=== PATIENT | female | born 2000 | race Caucasian/White ===

== ENCOUNTER 2020-02-01 22:07 | Emergency (ER) | payer MEDICAID ==
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
[2020-02-01 23:10] VITALS: BP 100/60; PULSE 80; O2SAT 97
== END 2020-02-01 23:09 | disposition home or self-care (01) ==
LOC: ED 22:07
DX: F41.9 Anxiety disorder, unspecified (principal); F10.129 Alcohol abuse with intoxication, unspecified
CPT/HCPCS: 99283

== ENCOUNTER 2020-04-07 08:55 | Emergency (ER) | payer MEDICAID ==
--- NOTE | 2020-04-07 08:59 | ERPHSYRPT ---
- History of Present Illness Time Seen by Provider: 04/07/20 08:58 Source: patient Exam Limitations: no limitations Physician History: This is a 19-year-old white female whose last menstrual period was on 03/03/2020 and presents with concerned that she may be . Patient states that she took 2 test showed positive . She was having a lot of back pain without history of trauma or injury. Patient denies anterior abdominal pain. She denies vaginal bleeding. She has had no fevers. She has had no nausea vomiting or diarrhea. Patient has history of anxiety and panic attacks. Patient states she is Rh-. Timing/Duration: day(s) (3) Method of Injury: other (No injury) Quality: aching Back Pain Location: lumbar spine (Bilateral flanks) Severity of Pain-Max: mild Severity of Pain-Current: mild Associated Symptoms: lower back pain, No urinary incontinence, No nausea, No vomiting, No problems urinating Previous symptoms: no prior history Allergies/Adverse Reactions: trazodone Allergy (Severe, Verified 04/07/20 09:31) Difficulty Breathing aripiprazole [From Abilify] Adverse Reaction (Intermediate, Verified 04/07/20 09:31) muscle spasm ibuprofen Adverse Reaction (Mild, Verified 04/07/20 09:31) dizzy Hx Tetanus, Diphtheria Vaccination/Date Given: Yes Hx Influenza Vaccination/Date Given: Yes Travel Risk - International Travel Have you traveled outside of the country in past 3 weeks: No - Coronavirus Screening Are you exhibiting any of the following symptoms?: No Close contact with a COVID-19 positive Pt in past 14-21 Days: No - Review of Systems Constitutional: No Symptoms Eyes: No Symptoms Ears, Nose, & Throat: No Symptoms Respiratory: No Symptoms Cardiac: No Symptoms Abdominal/Gastrointestinal: No Symptoms Genitourinary Symptoms: Flank Pain (Bilateral), (Possible) Musculoskeletal: Back Pain Skin: No Symptoms Neurological: No Symptoms Psychological: No Symptoms Endocrine: No Symptoms Hematologic/Lymphatic: No Symptoms Immunological/Allergic: No Symptoms All Other Systems: Reviewed and Negative - Past Medical History Pertinent Past Medical History: Yes Neurological History: Other (Anxiety, panic attacks, and depression) Cardiac History: No Pertinent History Respiratory History: No Pertinent History Endocrine Medical History: No Pertinent History Musculoskeletal History: No Pertinent History GI Medical History: No Pertinent History History: No Pertinent History Psycho-Social History: Anxiety Female Reproductive Disorders: No Pertinent History - Past Surgical History Past Surgical History: No Neuro Surgical History: No Pertinent History Cardiac: No Pertinent History Respiratory: No Pertinent History Gastrointestinal: No Pertinent History Genitourinary: No Pertinent History Musculoskeletal: No Pertinent History Female Surgical History: No Pertinent History - Social History Smoking Status: Never smoker Exposure to second hand smoke: Yes Alcohol Use: Socially Drug Use: none Patient Lives Alone: No (Lives with boyfriend) - Nursing Vital Signs Nursing Vital Signs: Initial Vital Signs Temperature 99.0 F 04/07/20 09:33 Pulse Rate 102 H 04/07/20 09:33 Respiratory Rate 18 04/07/20 09:33 Blood Pressure 126/84 04/07/20 09:33 O2 Sat by Pulse Oximetry 97 04/07/20 09:33 Pain Scale Pain Intensity 4 - Physical Exam General Appearance: no apparent distress, alert, anxiety Eye Exam: PERRL/EOMI, eyes nml inspection Ears, Nose, Throat Exam: normal ENT inspection, moist mucous membranes Neck Exam: normal inspection, non-tender, supple, full range of motion Respiratory Exam: normal breath sounds, lungs clear, airway intact, No chest tenderness, No respiratory distress Gastrointestinal Exam: soft, normal bowel sounds, No tenderness Pelvic Exam: not done Rectal Exam: not done Back Exam: normal inspection, normal range of motion, CVA tenderness (Bilateralmild), No vertebral tenderness Extremity Exam: normal inspection, normal range of motion, pelvis stable Neurologic Exam: alert, oriented x 3, cooperative, greeting card writer II-XII nml as tested, normal mood/affect, nml cerebellar function, nml station & gait, sensation nml Skin Exam: normal color, warm, dry Lymphatic Exam: No adenopathy SpO2 Interpretation: normal O2 Delivery: Room Air Ordered Tests: Active Orders 24 hr Category Date Time Status CULTURE,URINE Stat Lab 04/07/20 10:18 Received HCG,QUALITATIVE URINE Stat Lab 04/07/20 10:18 Completed UA W/RFX UR CULTURE Stat Lab 04/07/20 10:18 Completed Medication Summary Generic Name Dose Route Start Last Admin Trade Name Freq PRN Reason Stop Dose Admin Ceftriaxone Sodium 1,000 mg 04/07/20 10:36 Rocephin 1000 Mg Inj IM 04/07/20 10:37 STAT ONE Lab/Rad Data: Laboratory Results 04/07/20 04/07/20 Range/Units 10:18 10:18 Urine Color DENNIS (YELLOW) Urine Appearance CLOUDY (CLEAR) Urine pH 5.0 (5-6) Ur Specific [place] 1.033 (1.005-1.025) Urine Protein 100 (Negative) Urine Ketones MODERATE (NEGATIVE) Urine Blood SMALL (0-5) Harshil/ul Urine Nitrite NEGATIVE (NEGATIVE) Urine Bilirubin SMALL (NEGATIVE) Urine Urobilinogen 2 (0-1) mg/dL Ur Leukocyte Esterase LARGE (NEGATIVE) Urine WBC (Auto) 51-100 (0-5) /HPF Urine RBC (Auto) 3-5 (0-2) /HPF U Epithel Cells (Auto) PACKED (FEW) /HPF Urine Bacteria (Auto) FEW (NEGATIVE) /HPF Urine Mucus (Auto) MANY (NEGATIVE) /HPF Urine Culture Reflexed YES (NO) Urine Glucose NEGATIVE (NEGATIVE) mg/dL Urine HCG, Qual POSITIVE (Negative) - Progress Progress: unchanged, re-examined Counseled pt/family regarding: lab results, diagnosis, need for follow-up - Departure Departure Disposition: Home Clinical Impression: UTI (urinary tract infection) in in first trimester Condition: Stable Critical Care Time: No Additional Instructions: Drink plenty of fluids. 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 Take your medication as prescribed. May use Tylenol for fever control and pain control. Prescriptions: Cephalexin Mh 500 mg [Keflex 500 mg] 500 mg PO TID #21 capsule
[2020-04-07 10:29] LABS: Appearance CLOUDY (CLEAR); Bacteria FEW /HPF (NEGATIVE); Bilirubin SMALL (NEGATIVE); Blood SMALL Ery/ul (0-5); Epithelial Cells PACKED /HPF (FEW); Glucose NEGATIVE (NEGATIVE); Ketones MODERATE (NEGATIVE); Leukocyte Esterase LARGE (NEGATIVE); Mucus MANY /HPF (NEGATIVE); Nitrite NEGATIVE (NEGATIVE); Protein,Urine Dip 100 (Negative); Specific Gravity 1.033 (1.005-1.025); Urobilinogen 2 mg/dL (0-1); WBC 51-100 /HPF (0-5)
[2020-04-07] MEDS ORDERED: Rocephin 1000 MG INJ IM ONE (10:36)
[2020-04-07] MEDS ORDERED: XYLOCAINE 1% HCL 20 ML MDV ONE (10:56)
[2020-04-07] MEDS ORDERED: Rocephin 1000 MG INJ ONE (10:56)
[2020-04-07 11:16] VITALS: BP 111/73; PULSE 112; O2SAT 95
== END 2020-04-07 11:17 | disposition home or self-care (01) ==
LOC: ED 08:55
DX: O23.41 Unspecified infection of urinary tract in pregnancy, first trimester (principal)
CPT/HCPCS: 81001; 84703; 87086; 96372; 99284; J0696

== ENCOUNTER 2020-06-30 20:09 | Emergency (ER) | payer MEDICAID ==
[2020-06-30 21:00] VITALS: O2SAT 100
[2020-06-30] MEDS ORDERED: NORCO 5/325 MG PO ONE (21:33)
[2020-06-30] MEDS ORDERED: NORCO 5/325 MG ONE (21:39)
--- NOTE | 2020-06-30 22:20 | ERPHSYRPT ---
- History of Present Illness Time Seen by Provider: 06/30/20 20:15 Source: patient Exam Limitations: no limitations Patient Subjective Stated Complaint: pt c/o headache since 10:00 am, nausea, vomitied 2-3 times today Triage Nursing Assessment: pt c/o migraine headache since 1000, nausea, vomited 2-3 times today. Pt states, "The tylenol has not helped at all today". Headache is throbbing and is across the forehead and to the back of head. Pt is currently 18 wks with twins. Physician History: Patient is a 19-year-old female G1, P0 currently 18 weeks with twins presents to our ED with a typical migraine. Patient states she gets migraine headaches monthly. Headache today described as a frontal pain that tends to radiate to the back of her head. Headache started today today at approximately 10 AM. Patient took Tylenol at 4 PM. There was minimal relief. 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 Patient states otherwise healthy. She voices no other complaints or concerns at this time. Timing/Duration: today Severity: moderate Modifying Factors: Improves With: nothing Associated Symptoms: nausea, vomiting, No abdominal pain, No shortness of breath, No heartburn, No diaphoresis, No cough, No chills, No chest pain, No fever, No loss of appetite, No malaise, No syncope, No seizure, No weakness Allergies/Adverse Reactions: trazodone Allergy (Severe, Verified 06/30/20 21:08) Difficulty Breathing aripiprazole [From Abilify] Adverse Reaction (Intermediate, Verified 06/30/20 21:08) muscle spasm ibuprofen Adverse Reaction (Mild, Verified 06/30/20 21:08) dizzy Home Medications: Biotin 10 mg PO DAILY 06/30/20 [History] Docusate Sodium 100 mg [Colace 100 MG] 100 mg PO DAILY PRN PRN 06/30/20 [History] Vit 10/Iron Fum/Folic [Vitafol-Ob Caplet] 1 tab PO DAILY 06/30/20 [History] Hx Tetanus, Diphtheria Vaccination/Date Given: Yes Hx Influenza Vaccination/Date Given: Yes Hx Pneumococcal Vaccination/Date Given: No Immunizations Up to Date: Yes Travel Risk - International Travel Have you traveled outside of the country in past 3 weeks: No - Coronavirus Screening Are you exhibiting any of the following symptoms?: No Close contact with a COVID-19 positive Pt in past 14-21 Days: No - Review of Systems Constitutional: No Symptoms, No Fever, No Chills Eyes: No Symptoms Ears, Nose, & Throat: No Symptoms Respiratory: No Symptoms, No Cough, No Dyspnea Cardiac: No Symptoms, No Chest Pain, No Edema, No Syncope Abdominal/Gastrointestinal: No Symptoms, No Abdominal Pain, No Nausea, No Vomiting, No Diarrhea Genitourinary Symptoms: No Symptoms, No Dysuria Musculoskeletal: No Symptoms, No Back Pain, No Neck Pain Skin: No Symptoms, No Rash Neurological: No Symptoms, No Dizziness, No Focal Weakness, No Lethargy, No Seizure, No Sensory Changes, No Speech Changes Psychological: No Symptoms Endocrine: No Symptoms Hematologic/Lymphatic: No Symptoms Immunological/Allergic: No Symptoms All Other Systems: Reviewed and Negative - Past Medical History Pertinent Past Medical History: Yes Neurological History: Migraines ENT History: No Pertinent History Cardiac History: No Pertinent History Respiratory History: Asthma Endocrine Medical History: No Pertinent History Musculoskeletal History: No Pertinent History GI Medical History: No Pertinent History History: No Pertinent History Psycho-Social History: Anxiety Female Reproductive Disorders: No Pertinent History - Past Surgical History Past Surgical History: No Neuro Surgical History: No Pertinent History Cardiac: No Pertinent History Respiratory: No Pertinent History Gastrointestinal: No Pertinent History Genitourinary: No Pertinent History Musculoskeletal: No Pertinent History Female Surgical History: No Pertinent History - Social History Smoking Status: Never smoker Exposure to second hand smoke: Yes Alcohol Use: Socially Drug Use: none Patient Lives Alone: No - Female History Hx Now: Yes Expected Date of Delivery: 11/27/20 Gestational Age: 18 wks - Nursing Vital Signs Nursing Vital Signs: Initial Vital Signs Temperature 98.4 F 06/30/20 20:10 Pulse Rate 78 06/30/20 20:10 Respiratory Rate 16 06/30/20 20:10 Blood Pressure 113/85 06/30/20 20:10 O2 Sat by Pulse Oximetry 100 06/30/20 20:10 Pain Scale Pain Intensity 5 - Physical Exam General Appearance: no apparent distress, alert Eye Exam: PERRL/EOMI, eyes nml inspection Ears, Nose, Throat Exam: normal ENT inspection, TMs normal, pharynx normal, moist mucous membranes Neck Exam: normal inspection, non-tender, supple, full range of motion Respiratory Exam: normal breath sounds, lungs clear, No respiratory distress Cardiovascular Exam: regular rate/rhythm, normal heart sounds, normal peripheral pulses Gastrointestinal/Abdomen Exam: soft, normal bowel sounds, No tenderness, No mass Back Exam: normal inspection, normal range of motion, No CVA tenderness, No vertebral tenderness Extremity Exam: normal inspection, normal range of motion, pelvis stable Neurologic Exam: alert, oriented x 3, cooperative, normal mood/affect, nml cerebellar function, nml station & gait, sensation nml, No motor deficits Skin Exam: normal color, warm, dry, No rash Lymphatic Exam: No adenopathy SpO2 Interpretation: normal SpO2: 100 O2 Delivery: Room Air - Course Nursing assessment & vital signs reviewed: Yes Ordered Tests: Medication Summary Discontinued Medications Generic Name Dose Route Start Last Admin Trade Name Tracey PRN Reason Stop Dose Admin Hydrocodone Bitart/Acetaminophen 1 tab 06/30/20 21:33 06/30/20 21:40 Bond 5/325 Mg PO 06/30/20 21:34 1 tab STAT ONE Administration Hydrocodone Bitart/Acetaminophen Confirm 06/30/20 21:39 Bond 5/325 Mg Administered 06/30/20 21:40 Dose 1 tab .ROUTE .STK-MED ONE - Progress Progress: improved Progress Note: 06/30/20 22:[address] Lee lysed either to Tylenol 3 Darvocet or Vicodin. Patient received a dose of Vicodin. He stated that if headaches continue he will treat patient with mag oxide 200 mg daily. Patient currently has a follow-up appointment scheduled for July 16. Patient reassessed after administration of Vicodin. Headache resolved. Patient states he is ready for discharge. Repeat neuro exam within normal limits. Patient denies any abdominal pain. No pelvic cramping. No vaginal discharge. No dysuria. Patient is currently asymptomatic and is requesting discharge at this time. Will discharge home Discussed with : Guru Will see patient in: office Counseled pt/family regarding: diagnosis, need for follow-up - Departure Departure Disposition: Home Clinical Impression: Migraine headache, Condition: Stable Critical Care Time: No Referrals: DANIELLE ONTIVEROS MD [Primary Care Provider] - ARLEEN LEE DO [ACTIVE STAFF] - Instructions: Headache, Adult (DC) Additional Instructions: Discharge/Care Plan RADHA FERGUSON was seen on 06/30/20 in the Emergency Room. The patient was counseled regarding Diagnosis,Lab results, Imaging studies, need for follow up and when to return to the Emergency Room. Prescriptions given: Discharge Note I have spoken with the patient and/or caregivers. I have explained the patient's condition, diagnosis and treatment plan based on the information available to me at this time. I have answered the patient's and/or caregiver's questions and addressed any concerns. The patient and/or caregivers have as good understanding of the patient's diagnosis, condition and treatment plan as can be expected at this point. The vital signs have been stable. The patient's condition is stable and appropriate for discharge from the emergency department. The patient will pursue further outpatient evaluation with the primary care physician or other designated or consulting physician as outlined in the discharge instructions. The patient and/or caregivers are agreeable to this plan of care and follow-up instructions have been explained in detail. The patient and/or caregivers have received these instruction. The patient/and or caregivers are aware that any significant change in condition or worsening of symptoms should prompt an immediate return to this or the closest emergency department or call 911.
[2020-06-30 22:32] VITALS: BP 127/79; PULSE 87
== END 2020-06-30 22:25 | disposition home or self-care (01) ==
LOC: ED 20:09
DX: G43.909 Migraine, unspecified, not intractable, without status migrainosus (principal); Z33.1 Pregnant state, incidental
CPT/HCPCS: 99283; A9270-GY

== ENCOUNTER 2022-11-12 10:45 | Observation (INO) | payer OTHER ==
[2022-11-12 11:34] VITALS: BP 112/71; PULSE 65
--- NOTE | 2022-11-12 11:51 | XRAY ---
Indication: Cramping. Evaluate cervical length. Limited OB ultrasound demonstrates single intrauterine in breech presentation with heart rate 153 BPM. Closed cervix with cervical length 5.0 cm.
[2022-11-12 12:06] LABS: Appearance Clear (Clear); Bacteria None Seen /HPF (None Seen); Bilirubin Negative (Negative); Blood Negative (Negative); Epithelial Cells None Seen /HPF (None Seen); Glucose, Urine Negative (Negative); Hyaline Casts NONE SEEN /LPF (0-2); Ketones Negative (Negative); Leukocyte Esterase Negative (Negative); Nitrite Negative (Negative); Protein,Urine Dip Negative (Negative); RBC 0-2 /HPF (0-5); Specific Gravity 1.015 (1.005-1.030); Urobilinogen 0.2 mg/dL (0.2); WBC 0-2 /HPF (0-5)
[2022-11-12 12:12] LABS: ADD URINE CULTURE? NO (NO)
== END 2022-11-12 12:30 | disposition home or self-care (01) ==
LOC: OB 10:45
PROVIDERS: ADMIT Obstetrics & Gynecology; ATTEND Obstetrics & Gynecology
DX: Z34.82 Encounter for supervision of other normal pregnancy, second trimester (principal); Z3A.24 24 weeks gestation of pregnancy
CPT/HCPCS: 76815; 81001; G0378; G0379

== ENCOUNTER 2023-01-24 13:22 | Observation (INO) | payer OTHER ==
[2023-01-24 14:01] VITALS: TEMP 97.7
[2023-01-24] MEDS ORDERED: Lactated Ringers 1,000 ML IV ONE ×2 (14:03→14:12)
[2023-01-24] MEDS ORDERED: BRETHINE 1 MG/ML SQ ONE (14:12)
[2023-01-24 14:24] LABS: Appearance Cloudy (Clear); Bacteria None Seen /HPF (None Seen); Bilirubin Negative (Negative); Blood Negative (Negative); Epithelial Cells None Seen /HPF (None Seen); Glucose, Urine Negative (Negative); Hyaline Casts NONE SEEN /LPF (0-2); Ketones Negative (Negative); Leukocyte Esterase Trace (Negative); Nitrite Negative (Negative); Ph 7.5 (4.6-8.0); Protein,Urine Dip Negative (Negative); RBC 0-2 /HPF (0-5); Specific Gravity 1.015 (1.005-1.030); WBC 0-2 /HPF (0-5)
[2023-01-24 14:32] LABS: ADD URINE CULTURE? NO (NO)
[2023-01-24 14:36] LABS: Amphetamine,Urine NEGATIVE (NEGATIVE); Barbiturate,Urine NEGATIVE (NEGATIVE); Benzodiazepine,Urine NEGATIVE (NEGATIVE); Cocaine,Urine NEGATIVE (NEGATIVE); Methadone,Urine NEGATIVE (NEGATIVE); Opiate,Urine NEGATIVE (NEGATIVE); PCP,Urine NEGATIVE (NEGATIVE); THC,Urine NEGATIVE (NEGATIVE)
[2023-01-24] MEDS ORDERED: Lactated Ringers 1,000 ML IV SCH (15:30)
[2023-01-24 17:30] VITALS: RESP 16
[2023-01-24 18:51] VITALS: BP 109/75; PULSE 83; O2SAT 99
== END 2023-01-24 18:10 | disposition home or self-care (01) ==
LOC: OB 13:22
PROVIDERS: ADMIT Obstetrics & Gynecology; ATTEND Obstetrics & Gynecology
DX: Z34.83 Encounter for supervision of other normal pregnancy, third trimester (principal); Z3A.34 34 weeks gestation of pregnancy
CPT/HCPCS: 59025; 80307; 81001; 87086; 96372; 99213; G0378

== ENCOUNTER 2023-02-11 13:30 | Observation (INO) | payer OTHER ==
[2023-02-11] MEDS ORDERED: Lactated Ringers 1,000 ML IV ONE ×2 (14:03→14:05)
[2023-02-11 15:59] LABS: Appearance Clear (Clear); Bacteria None Seen /HPF (None Seen); Bilirubin Negative (Negative); Blood Negative (Negative); Epithelial Cells None Seen /HPF (None Seen); Glucose, Urine Negative (Negative); Hyaline Casts NONE SEEN /LPF (0-2); Ketones 40 (Negative); Leukocyte Esterase Negative (Negative); Nitrite Negative (Negative); Ph 6.5 (4.6-8.0); Protein,Urine Dip Negative (Negative); RBC 0-2 /HPF (0-5); WBC 0-2 /HPF (0-5)
[2023-02-11 16:07] LABS: ADD URINE CULTURE? NO (NO)
[2023-02-11 17:07] LABS: Amphetamine,Urine NEGATIVE (NEGATIVE); Barbiturate,Urine NEGATIVE (NEGATIVE); Benzodiazepine,Urine NEGATIVE (NEGATIVE); Cocaine,Urine NEGATIVE (NEGATIVE); Methadone,Urine NEGATIVE (NEGATIVE); Opiate,Urine NEGATIVE (NEGATIVE); PCP,Urine NEGATIVE (NEGATIVE); THC,Urine NEGATIVE (NEGATIVE)
[2023-02-12 09:18] VITALS: BP 98/54; PULSE 79; RESP 16; TEMP 98; O2SAT 100
--- NOTE | 2023-02-12 09:21 | PCM.HP ---
History of Present Illness - Chief Complaint Chief Complaint: R/O labor History of Present Illness: is a 22 year old female. 22 yo iup at 37wks with hx of previous csection for severe preeclampsia is here for evaluation of continued uterine contractions that started yesterday and now feeling better. Medications & Allergies Home Medications: Home Medication List No Reportable Medications [No Reported Medications] 02/11/23 [History Confirmed 02/11/23] Allergies/Adverse Reactions: Allergies Allergy/AdvReac Type Severity Reaction Status Date / Time trazodone Allergy Severe Difficulty Verified 01/24/23 16:09 Breathing aripiprazole [From Abilify] AdvReac Intermediate Verified 01/24/23 16:09 ibuprofen AdvReac Mild dizzy Verified 01/24/23 16:09 - Past Medical History Past Medical History: Yes Neurological History: Migraines ENT History: No Pertinent History Cardiac History: No Pertinent History Respiratory History: Asthma Endocrine Medical History: No Pertinent History Musculoskelatal History: No Pertinent History GI Medical History: No Pertinent History History: No Pertinent History Pyscho-Social History: Anxiety Reproductive Disorders: No Pertinent History - Female History Expected Date of Delivery: 03/04/23 - Past Surgical History Past Surgical History: No Neuro Surgical History: No Pertinent History Cardiac History: No Pertinent History Respiratory Surgery: No Pertinent History GI Surgical History: No Pertinent History Genitourinary Surgical Hx: No Pertinent History Musculskeletal Surgical Hx: No Pertinent History Female Surgical History: No Pertinent History - Social History Smoking Status: Never smoker Exposure to second hand smoke: Yes Alcohol: None Drug Use: none - Physical Exam Vital Signs: Vital Signs - 24 hr Temp Pulse Resp BP Pulse Ox 02/12/23 09:00 98.0 F 79 16 98/54 100 02/12/23 05:00 98.3 F 83 18 107/62 99 02/12/23 01:00 98.3 F 83 18 107/62 99 02/11/23 21:00 98.2 F 82 16 105/71 99 02/11/23 17:01 98.6 F 84 18 120/76 02/11/23 14:22 98.4 F 102 H 18 100 02/11/23 13:51 98.4 F 102 H 18 120/78 100 Pelvic Exam: other (closed posterior) Results - Labs Lab/Micro Results: Lab Results-Last 24 Hours 02/11/23 02/11/23 Range/Units 15:00 Unknown Urine Color Yellow (Yellow) Urine Appearance Clear (Clear) Urine pH 6.5 (4.6-8.0) Ur Specific [place] 1.010 (1.005-1.030) Urine Protein Negative (Negative) Urine Glucose (UA) Negative (Negative) mg/dL Urine Ketones 40 A (Negative) Urine Blood Negative (Negative) Urine Nitrite Negative (Negative) Urine Bilirubin Negative (Negative) Urine Urobilinogen 1.0 A (0.2) mg/dL Ur Leukocyte Esterase Negative (Negative) U Hyaline Cast (Auto) NONE SEEN (0-2) /LPF Urine Microscopic RBC 0-2 (0-5) /HPF Urine Microscopic WBC 0-2 (0-5) /HPF Ur Epithelial Cells None Seen (None Seen) /HPF Urine Bacteria None Seen (None Seen) /HPF Urine Culture Reflexed NO (NO) Urine Opiates Level NEGATIVE (NEGATIVE) Ur Methadone NEGATIVE (NEGATIVE) Urine Barbiturates NEGATIVE (NEGATIVE) Ur Phencyclidine (PCP) NEGATIVE (NEGATIVE) Urine Amphetamine NEGATIVE (NEGATIVE) U Benzodiazepine Level NEGATIVE (NEGATIVE) Urine Cocaine NEGATIVE (NEGATIVE) Urine Marijuana (THC) NEGATIVE (NEGATIVE) Assessment/Plan (1) Threatened labor at term Current Visit: Yes Status: Acute Code(s): O47.9 - FALSE LABOR, UNSPECIFIED
--- NOTE | 2023-02-12 09:22 | PCM.NOTE ---
Date and Time: 02/12/23920 Subjective Assessment: pt at 37 wks gestation with hx of previous csection here for evaluation of continued uterine contx however now feeling better and not feeling contx as much and are irregular. 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 resolved dc home today fu office as scheduled OBJECTIVE DATA Vital Signs: Vital Signs - 24 hr Temp Pulse Resp BP Pulse Ox 02/12/23 09:00 98.0 F 79 16 98/54 100 02/12/23 05:00 98.3 F 83 18 107/62 99 02/12/23 01:00 98.3 F 83 18 107/62 99 02/11/23 21:00 98.2 F 82 16 105/71 99 02/11/23 17:01 98.6 F 84 18 120/76 02/11/23 14:22 98.4 F 102 H 18 100 02/11/23 13:51 98.4 F 102 H 18 120/78 100 Pain Assessment - Last Documented Pain Intensity 4 Intake and Output: Intake & Output 02/09/23 02/10/23 02/11/23 02/12/23 11:59 11:59 11:59 11:59 Intake Total 800 Balance 800 Weight 68.039 kg Lab Results: Lab Results-Last 24 Hours 02/11/23 02/11/23 Range/Units 15:00 Unknown Urine Color Yellow (Yellow) Urine Appearance Clear (Clear) Urine pH 6.5 (4.6-8.0) Ur Specific [place] 1.010 (1.005-1.030) Urine Protein Negative (Negative) Urine Glucose (UA) Negative (Negative) mg/dL Urine Ketones 40 A (Negative) Urine Blood Negative (Negative) Urine Nitrite Negative (Negative) Urine Bilirubin Negative (Negative) Urine Urobilinogen 1.0 A (0.2) mg/dL Ur Leukocyte Esterase Negative (Negative) U Hyaline Cast (Auto) NONE SEEN (0-2) /LPF Urine Microscopic RBC 0-2 (0-5) /HPF Urine Microscopic WBC 0-2 (0-5) /HPF Ur Epithelial Cells None Seen (None Seen) /HPF Urine Bacteria None Seen (None Seen) /HPF Urine Culture Reflexed NO (NO) Urine Opiates Level NEGATIVE (NEGATIVE) Ur Methadone NEGATIVE (NEGATIVE) Urine Barbiturates NEGATIVE (NEGATIVE) Ur Phencyclidine (PCP) NEGATIVE (NEGATIVE) Urine Amphetamine NEGATIVE (NEGATIVE) U Benzodiazepine Level NEGATIVE (NEGATIVE) Urine Cocaine NEGATIVE (NEGATIVE) Urine Marijuana (THC) NEGATIVE (NEGATIVE) Assessment/Plan (1) Threatened labor at term Current Visit: Yes Status: Acute Code(s): O47.9 - FALSE LABOR, UNSPECIFIED
== END 2023-02-12 09:40 | disposition home or self-care (01) ==
LOC: MED SURG 13:30
PROVIDERS: ADMIT Obstetrics & Gynecology; ATTEND Obstetrics & Gynecology
DX: O47.9 False labor, unspecified (principal); Z3A.37 37 weeks gestation of pregnancy; Z20.828 Contact with and (suspected) exposure to other viral communicable diseases
CPT/HCPCS: 80307; 81001; G0378; G0379

== ENCOUNTER 2023-02-25 06:00 | Inpatient (IN) | payer OTHER ==
[~2023-02-25 06:00] MED LIST: CEFAZOLIN 2 GM-D5W BAG** 2 GM/50 ML ML IV SCH; Lactated Ringers 1,000 ML IV ONE; Pepcid 20 MG VIAL IV SCH; Reglan 10 MG/2 ML IV SCH; SOD CITRATE-CITRIC ACID SOLN PO SCH
[2023-02-25] MEDS ORDERED: Pepcid 20 MG VIAL IV ONE (06:23)
[2023-02-25] MEDS: Lactated Ringers 1,000 ML IV SCH ×2 (06:29→08:28)
[2023-02-25 06:31] LABS: Hematocrit 33.2 % (35-47); Hemoglobin 9.9 g/dL (12.0-16.0); Mean Cell Volume 74.4 fL (78-100); Mean Corpuscular Hemoglobin 22.2 pg (26-32); Mean Corpuscular Hgb Concent. 29.8 g/dL (32-36); Mean Platelet Volume 10.2 fL (7.5-11.0); Platelet Count 337 x10^3/uL (150-450); Red Blood Count 4.46 x10^6/uL (4.1-5.4); White Blood Count 10.6 x10^3/uL (4.0-10.5)
[2023-02-25 06:50] LABS: INR 0.89 (0.8-3.0); PROTIME 9.8 SECONDS (9.4-12.5); PTT 24.8 SECONDS (25.1-36.5)
[2023-02-25 07:19] LABS: ABO TYPING O; RH TYPING POSITIVE
[2023-02-25 07:20] LABS: Antibody Screen NEGATIVE (NEGATIVE)
[2023-02-25 07:21] LABS: Amphetamine,Urine NEGATIVE (NEGATIVE); Barbiturate,Urine NEGATIVE (NEGATIVE); Benzodiazepine,Urine NEGATIVE (NEGATIVE); Cocaine,Urine NEGATIVE (NEGATIVE); Methadone,Urine NEGATIVE (NEGATIVE); Opiate,Urine NEGATIVE (NEGATIVE); PCP,Urine NEGATIVE (NEGATIVE); THC,Urine NEGATIVE (NEGATIVE)
[2023-02-25] MEDS ORDERED: HOLD NARCOTIC ANALGESICS AND SEDATIVES X24 HR MC PRN (09:00)
[2023-02-25] MEDS ORDERED: PERCOCET TABLET 5/325MG PO PRN (09:00)
[2023-02-25] MEDS ORDERED: LANSINOH 40 GM TOP PRN (09:00)
[2023-02-25] MEDS ORDERED: Narcan 0.4 MG/ML IV PRN (09:00)
[2023-02-25] MEDS ORDERED: DEMEROL 50 MG IV PRN (09:00)
[2023-02-25] MEDS ORDERED: Zofran 4 MG/2 ML VIAL IV PRN (09:00)
[2023-02-25] MEDS ORDERED: BENADRYL 50 MG/ML IV PRN (09:00)
[2023-02-25] MEDS ORDERED: CLARITIN 10 MG PO PRN (09:00)
[2023-02-25] MEDS ORDERED: Adacel Vial IM ONE (09:00)
[2023-02-25] MEDS ORDERED: MORPHINE SULFATE 2 MG INJ IV PRN (09:00)
[2023-02-25] MEDS ORDERED: Nubain 10 MG/ML IV PRN (09:00)
[2023-02-25] MEDS ORDERED: Pitocin 10 UNITS/ML ONE (09:22)
[2023-02-25] MEDS ORDERED: Astramorph-Pf 5 MG/10 ML ONE (09:23)
[2023-02-25] MEDS ORDERED: PHENYLEPHRINE HCL ONE (09:43)
[2023-02-25] MEDS ORDERED: Zofran 4 MG/2 ML VIAL ONE (09:49)
[2023-02-25] MEDS ORDERED: Marcaine 0.5%/Epinephrine 10 ML ONE (10:06)
[2023-02-25] MEDS ORDERED: DEMEROL 50 MG ONE (10:28)
[2023-02-25] MEDS: Dextrose 5%-Lr IV Solution 1000 ML 1,000 ML IV SCH (11:21)
[2023-02-25 14:27] LABS: Appearance Clear (Clear); Bacteria None Seen /HPF (None Seen); Bilirubin Negative (Negative); Blood Negative (Negative); Epithelial Cells None Seen /HPF (None Seen); Glucose, Urine Negative (Negative); Hyaline Casts NONE SEEN /LPF (0-2); Ketones Negative (Negative); Leukocyte Esterase Negative (Negative); Nitrite Negative (Negative); Protein,Urine Dip Negative (Negative); RBC 0-2 /HPF (0-5); Specific Gravity <=1.005 (1.005-1.030); WBC 0-2 /HPF (0-5)
[2023-02-25] MEDS: CEFAZOLIN 2 GM-D5W BAG** 2 GM/50 ML ML IV SCH (17:27)
[2023-02-25] MEDS: Docusate Sodium 100 MG PO SCH (21:08)
[2023-02-25] MEDS: TYLENOL EXTRA STRENGTH 500 MG PO PRN (23:29)
[2023-02-26] MEDS: CEFAZOLIN 2 GM-D5W BAG** 2 GM/50 ML ML IV SCH (01:31)
[2023-02-26] MEDS: TYLENOL EXTRA STRENGTH 500 MG PO PRN ×4 (03:46→23:05)
[2023-02-26 06:37] LABS: Absolute Neutrophil Ct (ANC) 10.02 x10^3/uL (1.4-6.9); BASOPHIL % 0.3 % (0.0-0.4); Basophil (Absolute #) 0.04 x10^3/uL (0-0.4); Eosinophil % 1.4 % (0.00-5.0); Eosinophil (Absolute #) 0.19 x10^3/uL (0-0.5); Hematocrit 28.1 % (35-47); Hemoglobin 8.6 g/dL (12.0-16.0); IMMATURE GRAN # 0.07 x10^3u/L (0.00-0.03); IMMATURE GRAN % 0.5 % (0.00-0.4); Lymphocyte (Absolute #) 1.98 x10^3/uL (1.0-4.6); Lymphocytes % 14.4 % (24.0-44.0); Mean Cell Volume 73.8 fL (78-100); Mean Corpuscular Hemoglobin 22.6 pg (26-32); Mean Corpuscular Hgb Concent. 30.6 g/dL (32-36); Mean Platelet Volume 10.3 fL (7.5-11.0); Monocyte (Absolute #) 1.48 x10^3/uL (0.0-1.3); Monocytes % 10.7 % (0.0-12.0); Neutrophil % 72.7 % (36.0-66.0); Platelet Count 271 x10^3/uL (150-450); Red Blood Count 3.81 x10^6/uL (4.1-5.4); Red Cell Distribution Width 17.4 % (11.5-14.0); White Blood Count 13.8 x10^3/uL (4.0-10.5)
[2023-02-26] MEDS: Docusate Sodium 100 MG PO SCH ×2 (10:24→22:57)
[2023-02-26] MEDS: FERREX 150 PO SCH (10:24)
[2023-02-26] MEDS: NORCO 5/325 MG PO PRN ×3 (10:32→19:46)
[2023-02-26 22:37] VITALS: O2SAT 99
[2023-02-27] MEDS: NORCO 5/325 MG PO PRN ×3 (00:18→11:02)
[2023-02-27] MEDS: Mylicon 80MG PO PRN ×2 (01:07→11:14)
[2023-02-27 06:20] VITALS: RESP 16; TEMP 98.4
[2023-02-27] MEDS: TYLENOL EXTRA STRENGTH 500 MG PO PRN (08:31)
[2023-02-27] MEDS ORDERED: M-M-R II Vaccine With Diluent SQ ONE (09:30)
[2023-02-27] MEDS: FERREX 150 PO SCH (09:56)
[2023-02-27] MEDS: Docusate Sodium 100 MG PO SCH (09:56)
--- NOTE | 2023-02-27 11:59 | PCM.DS ---
Discharge Summary Date of Admission: 02/25/23 06:00 Admitting Physician: ARLEEN ALAMO DO Consults: Consults on Case 02/25/23 05:00 Notify Anesthesia Provider ROUTINE 02/25/23 08:27 Navigation ONCE Primary Care Provider: DANIELLE ONTIVEROS MATT Allergies Allergies trazodone Allergy (Severe, Verified 01/24/23 16:09) Difficulty Breathing aripiprazole [From Abilify] Adverse Reaction (Intermediate, Verified 01/24/23 16:09) muscle spasm ibuprofen Adverse Reaction (Mild, Verified 01/24/23 16:09) dizzy Hospital Summary - Hospital Course Hospital Course: had term delivery via repeat , mild lochia, pain well controlled and tolerating po. no complications - Vitals & Intake/Output Vital Signs: Vital Signs Temperature 98.4 F 02/27/23 05:35 Pulse Rate 79 02/27/23 05:35 Respiratory Rate 16 02/27/23 05:35 Blood Pressure 111/74 02/27/23 05:35 O2 Sat by Pulse Oximetry 99 02/27/23 05:35 Intake & Output: Intake & Output 02/24/23 02/25/23 02/26/23 02/27/23 11:59 11:59 11:59 11:59 Intake Total 1500 3041 1999 Output Total 7450 Balance 1500 -4409 1999 Weight 68.946 kg - Lab Result Diagrams: 02/26/23 05:20 Micro Results-Entire Visit: Microbiology 02/25/23 10:00 Urine Culture - Final Urine, Catheterized NO GROWTH - Procedures and Test Procedures and Tests throughout Hospitalization: Therapy Orders & Screens 02/25/23 10:45 Standby ROUTINE Comment: Diagnosis: Repeat Section Discharge Exam General Appearance: no apparent distress Respiratory Exam: normal breath sounds, lungs clear, No respiratory distress Cardiovascular Exam: regular rate/rhythm, normal heart sounds Gastrointestinal/Abdomen Exam: soft, other (incision clean, dry, intact and well approximated with dissolvable bradley), No tenderness, No mass Wound Assessment: Skin/Wound Assessment Wound/Incision Assessment Start: 02/26/23 22:52 Text: Status: Active Freq: Q6H Protocol: Document 02/27/23 05:30 GONZALES (Rec: 02/27/23 06:13 [facility] [id number]) Wound/Incision Assessment Anterior Wound Assessment Shift Assessment Wound Type Incision Wound Stage Non Pressure Wound Dressing Status Dry & Intact Drainage Amount None Drainage Description Serosanguineous Drainage Odor None/Absent General Appearance Well Approximated,Asymptomatic ,Open to air,Clean/Dry Wound Bed Greatest Portion Pale [place] Wound Bed Lesser Portion Red (Granulation) Surrounding Tissue [place] Wound Photo Photo Taken No Final Diagnosis/Problem List - Final Discharge Diagnosis/Problem (1) delivery delivered Current Visit: Yes Status: Acute Code(s): O82 - ENCOUNTER FOR DELIVERY WITHOUT INDICATION - Discharge Disposition: Home, Self-Care Condition: Good Prescriptions: New Hydrocodone/Acetaminophen [Hydrocodone-Acetamin 7.5-325] 1 each PO Q6HPRN PRN #28 tablet MDD 4 PRN Reason: Pain Follow up with: ARLEEN ALAMO DO [ACTIVE STAFF] - 1 Week
[2023-02-27] MEDS: Dextrose 5%-Lr IV Solution 1000 ML 1,000 ML IV SCH (15:05)
[2023-02-27 15:17] VITALS: BP 113/74; PULSE 91
--- NOTE | 2023-02-28 11:30 | OP ---
SURGERY DATE/TIME: 02/25/2023 0929 PREOPERATIVE DIAGNOSIS: Intrauterine at 39 weeks gestation with previous section, decline trial of labor, desires repeat section and desires tubal sterilization. POSTOPERATIVE DIAGNOSIS: Intrauterine at 39 weeks gestation with previous section, decline trial of labor, desires repeat section and desires tubal sterilization. PROCEDURES: 1) Repeat section, low flap transverse uterine incision, Pfannenstiel skin incision. 2) Bilateral tubal sterilization. SURGEON: Varghese Lee D.O. NURSE QUALITY: Vanessa Ibrahim, surgical supply assistant. ANESTHESIA: Spinal. QUANTITATIVE ESTIMATED BLOOD LOSS: 692 cc. COMPLICATIONS: None. INDICATIONS: The risks, benefits, indications and alternatives of the procedure were reviewed with the patient prior to procedure. The patient understood the risk of infection, bleeding, bowel injury, bladder injury, ureteral injury, pelvic infection, thromboembolic disorder as well as the risk of future and ectopic that may be associated with this procedure and all other forms of control had been discussed with the patient prior to the procedure and desires to have tubal sterilization as a means for control measure. DESCRIPTION OF PROCEDURE AND FINDINGS: At this point the patient is taken to the operating room where her spinal anesthesia was found to adequate. She was then prepared and draped in normal sterile fashion in the dorsal supine position with a leftward tilt. A Pfannenstiel skin incision is made with a scalpel and carried through to the underlying layer of the fascia with a Bovie. The fascia was then incised in the midline and the incision extended laterally with Martinez scissors. The superior aspect of the fascial incision was then grasped Pavel clamps elevated and the underlying rectus muscles dissected off bluntly. Attention is then turned to the inferior aspect of this incision which in similar fashion was grasped, tented up with Pavel clamps and the rectus muscles dissected off bluntly. The rectus muscles were then in the midline and the peritoneum identified, tented up and entered sharply with Metzenbaum scissors. The peritoneal incision was then extended superiorly and inferiorly with good visualization of the bladder. The bladder blade was then inserted and the vesicouterine peritoneum identified, grasped with pickups and entered sharply with Metzenbaum scissors. This incision was then extended laterally and bladder flap created digitally. The bladder blade was then reinserted in the lower uterine segment and excised in transverse fashion with a scalpel. The uterine incision was then extended laterally with bandage scissors. The bladder blade was then removed and the infants head was delivered atraumatically. The nose and mouth were suctioned with bulb suction and the cord clamped and cut. The infant was then handed off to the awaiting nurses. The placenta was then removed manually and the uterus exteriorized and cleared of all clots and debris. The uterine incision was repaired with 1-0 chromic in running locked fashion. A second layer of the same suture was used to obtain excellent hemostasis. At this point a Phoenix clamp was then used to grasp the tube approximately at 4 cm from the cornual region where a 3 cm segment of the tube was then ligated with free tie of plain gut and excised on the left side. Good hemostasis was noted and the same procedure was performed on the right tube where the Phoenix clamp was placed 4 cm from the cornual region where it to a 3 cm segment of the tube was ligated with tie of 3 plain gut and excised. At this point the uterus was then returned to the abdomen. The gutters were cleared of all clots. The peritoneal muscles were closed in interrupted fashion using 2-0 chromic suture. The fascia was re-approximated with 0 Vicryl in a running fashion. The subcutaneous layer was closed with 3-0 Vicryl suture and the skin was closed with absorbable bradley called INSORB. The patient tolerated the procedure well. Sponge, lap, needle and instrument counts were correct x2. The patient was then taken to the recovery room in stable condition. The patient delivered a live baby boy at 1000 hours and the weight of the baby was 8 pounds 15 ounces.
== END 2023-02-27 14:30 | disposition home or self-care (01) | DRG 785 ==
LOC: MED SURG 06:00
PROVIDERS: ADMIT Obstetrics & Gynecology; ATTEND Obstetrics & Gynecology
PROC: 10D00Z1 Extraction of Products of Conception, Low, Open Approach (ICD-10-PCS; principal; 2023-02-25)
PROC: 0UL70ZZ Occlusion of Bilateral Fallopian Tubes, Open Approach (ICD-10-PCS; 2023-02-25)
DX: O34.211 Maternal care for low transverse scar from previous cesarean delivery (principal); Z3A.39 39 weeks gestation of pregnancy; Z37.0 Single live birth; Z30.2 Encounter for sterilization; Z20.828 Contact with and (suspected) exposure to other viral communicable diseases
CPT/HCPCS: 36415; 80307; 81001; 85025; 85027; 85610; 85730; 86850; 86900; 86901; 87086; 90471; 90472; 90707; 90715; 94799; J0690; J2175; J2274; J2371; J2405; J2590; L0625; A9270-GY

== ENCOUNTER 2023-06-22 15:28 | Emergency (ER) | payer OTHER ==
[2023-06-22 15:46] VITALS: BP 121/86; PULSE 70; RESP 18; TEMP 97.3; O2SAT 99
[2023-06-22 16:35] LABS: Absolute Neutrophil Ct (ANC) 3.72 x10^3/uL (1.4-6.9); BASOPHIL % 1.1 % (0.0-0.4); Basophil (Absolute #) 0.09 x10^3/uL (0-0.4); Eosinophil % 4.9 % (0.00-5.0); Hematocrit 39.4 % (35-47); IMMATURE GRAN # 0.02 x10^3u/L (0.00-0.03); IMMATURE GRAN % 0.2 % (0.00-0.4); Lymphocyte (Absolute #) 3.31 x10^3/uL (1.0-4.6); Lymphocytes % 40.5 % (24.0-44.0); Mean Cell Volume 80.1 fL (78-100); Mean Corpuscular Hemoglobin 24.4 pg (26-32); Mean Corpuscular Hgb Concent. 30.5 g/dL (32-36); Mean Platelet Volume 8.9 fL (7.5-11.0); Monocyte (Absolute #) 0.64 x10^3/uL (0.0-1.3); Monocytes % 7.8 % (0.0-12.0); Neutrophil % 45.5 % (36.0-66.0); Platelet Count 363 x10^3/uL (150-450); Red Blood Count 4.92 x10^6/uL (4.1-5.4); Red Cell Distribution Width 16.3 % (11.5-14.0); White Blood Count 8.2 x10^3/uL (4.0-10.5)
[2023-06-22 16:46] LABS: Erythrocyte Sedimentation Rate 15 mm/hr (0-20)
[2023-06-22 16:52] LABS: ALBUMIN 4.6 g/dL (3.5-5.0); ANION GAP 12.4 MEQ/L (5-15); BILIRUBIN,TOTAL 0.4 mg/dL (0.2-1.3); Calcium 9.3 mg/dL (8.4-10.2); Creatinine 1 0.73 mg/dL (0.52-1.04); EST GLOMERULAR FILTRATION RATE 119.2 ML/MIN; Potassium 3.8 mmol/L (3.5-5.1); Total Protein 8.2 g/dL (6.3-8.2)
--- NOTE | 2023-06-22 17:02 | ERPHSYRPT ---
- History of Present Illness Time Seen by Provider: 06/22/23 15:50 Source: patient Exam Limitations: no limitations Patient Subjective Stated Complaint: Pain Triage Nursing Assessment: Patient ambulated back to ED and transferred self to bed. Patient A+O X3. Patient's skin pink, warm and dry. Patient complains of left knee, right shoulder, artemio forearm pain 5/10 for the past two days. Patient states the pain started in her left wrist that radiated up to arm on Tuesday then on Tuesday she had pain in artemio wrists and forarms that went up arm. Patient states last night her left knee started hurting. Patient denies any trauma or injuries. Physician History: Patient is a 22-year-old white female presents with rather unusual pattern of pain which is migratory. It has been in her left hand up to the left elbow it has been in her right hand all the way to the shoulder she is also had pain in the left knee as I said this is migratory pain not associated with any trauma. She denies that any of her joints have ever become warm swollen red or warm to the touch. She does have a set of 2-year-old twins and a 20 pound baby at home which may explain some of it from a musculoskeletal point of view. Timing/Duration: intermittent Severity: moderate Allergies/Adverse Reactions: trazodone Allergy (Severe, Verified 06/22/23 15:41) Difficulty Breathing aripiprazole [From Abilify] Adverse Reaction (Intermediate, Verified 06/22/23 15:41) muscle spasm ibuprofen Adverse Reaction (Mild, Verified 06/22/23 15:41) dizzy Home Medications: No Reportable Medications [No Reported Medications] 06/22/23 [History] Hx Tetanus, Diphtheria Vaccination/Date Given: No Hx Influenza Vaccination/Date Given: No Hx Pneumococcal Vaccination/Date Given: No Immunizations Up to Date: Yes Travel Risk - International Travel Have you traveled outside of the country in past 3 weeks: No - Coronavirus Screening Are you exhibiting any of the following symptoms?: No Close contact with a COVID-19 positive Pt in past 14-21 Days: No - Vaccine Status Have you recieved a Covid-19 vaccination: No - Review of Systems Constitutional: No Fever, No Chills Eyes: No Symptoms Ears, Nose, & Throat: No Symptoms Respiratory: No Cough, No Dyspnea Cardiac: No Chest Pain, No Edema, No Syncope Abdominal/Gastrointestinal: No Abdominal Pain, No Nausea, No Vomiting, No Diarrhea Genitourinary Symptoms: No Dysuria Musculoskeletal: Joint Pain, No Back Pain, No Neck Pain Skin: No Rash Neurological: No Dizziness, No Focal Weakness, No Sensory Changes Psychological: No Symptoms Endocrine: No Symptoms All Other Systems: Reviewed and Negative - Past Medical History Pertinent Past Medical History: Yes Neurological History: No Pertinent History ENT History: No Pertinent History Cardiac History: Arrhythmia Respiratory History: Asthma Endocrine Medical History: No Pertinent History Musculoskeletal History: No Pertinent History GI Medical History: Other History: No Pertinent History Psycho-Social History: Anxiety, Attention Deficit Disorder, Depression Female Reproductive Disorders: No Pertinent History Other Medical History: Concerta possibly caused arrhythmia 2020, Constipation with dairy. Acid reflux with - Past Surgical History Past Surgical History: Yes Neuro Surgical History: No Pertinent History Cardiac: No Pertinent History Respiratory: No Pertinent History Gastrointestinal: No Pertinent History Genitourinary: No Pertinent History Musculoskeletal: No Pertinent History Female Surgical History: Section Other Surgical History: [place] Teeth removal 2017 - Social History Smoking Status: Never smoker Exposure to second hand smoke: No Alcohol Use: Socially Drug Use: none Patient Lives Alone: No - Female History Hx Last Menstrual Period: unknown Hx Now: No - Nursing Vital Signs Nursing Vital Signs: Initial Vital Signs Temperature 97.3 F 06/22/23 15:43 Pulse Rate 70 06/22/23 15:43 Respiratory Rate 18 06/22/23 15:43 Blood Pressure 121/86 06/22/23 15:43 O2 Sat by Pulse Oximetry 99 06/22/23 15:43 Pain Scale Pain Intensity 5 - Physical Exam General Appearance: no apparent distress, alert Eye Exam: PERRL/EOMI, eyes nml inspection Ears, Nose, Throat Exam: normal ENT inspection, TMs normal, pharynx normal, moist mucous membranes Neck Exam: normal inspection, non-tender, supple, full range of motion Respiratory Exam: normal breath sounds, lungs clear, No respiratory distress Cardiovascular Exam: regular rate/rhythm, normal heart sounds, normal peripheral pulses Gastrointestinal/Abdomen Exam: soft, normal bowel sounds, No tenderness, No mass Back Exam: normal inspection, normal range of motion, No CVA tenderness, No vertebral tenderness Extremity Exam: normal inspection, normal range of motion, pelvis stable Neurologic Exam: alert, oriented x 3, cooperative, normal mood/affect, nml cerebellar function, nml station & gait, sensation nml, No motor deficits Skin Exam: normal color, warm, dry, No rash Lymphatic Exam: No adenopathy SpO2: 99 - Course Nursing assessment & vital signs reviewed: Yes Ordered Tests: Active Orders 24 hr Category Date Time Status AMA [Release AMA] OM.NOW Care 06/22/23 16:40 Active CBC W DIFF Stat Lab 06/22/23 16:20 Completed CMP Stat Lab 06/22/23 16:30 Completed SED RATE [Erythrocyte Sedimentation Rate] Stat Lab 06/22/23 16:20 Completed Lab/Rad Data: Laboratory Result Diagrams 06/22/23 16:20 06/22/23 16:30 Laboratory Results 06/22/23 06/22/23 Range/Units 16:30 16:20 WBC 8.2 (4.0-10.5) x10^3/uL RBC 4.92 (4.1-5.4) x10^6/uL Hgb 12.0 (12.0-16.0) g/dL Hct 39.4 (35-47) % MCV 80.1 (78-100) fL MCH 24.4 L (26-32) pg MCHC 30.5 L (32-36) g/dL RDW 16.3 H (11.5-14.0) % Plt Count 363 (150-450) x10^3/uL MPV 8.9 (7.5-11.0) fL Gran % 45.5 (36.0-66.0) % Immature Gran % (Auto) 0.2 (0.00-0.4) % Nucleat RBC Rel Count 0.0 (0.00-0.1) % Eos # (Auto) 0.40 (0-0.5) x10^3/uL Immature Gran # (Auto) 0.02 (0.00-0.03) x10^3u/L Absolute Lymphs (auto) 3.31 (1.0-4.6) x10^3/uL Absolute Monos (auto) 0.64 (0.0-1.3) x10^3/uL Absolute Nucleated RBC 0.00 (0.00-0.01) x10^3u/L Lymphocytes % 40.5 (24.0-44.0) % Monocytes % 7.8 (0.0-12.0) % Eosinophils % 4.9 (0.00-5.0) % Basophils % 1.1 (0.0-0.4) % Absolute Granulocytes 3.72 (1.4-6.9) x10^3/uL Basophils # 0.09 (0-0.4) x10^3/uL ESR 15 (0-20) mm/hr Sodium 138 (137-145) mmol/L Potassium 3.8 (3.5-5.1) mmol/L Chloride 103 (98-107) mmol/L Carbon Dioxide 27 (22-30) mmol/L Anion Gap 12.4 (5-15) MEQ/L BUN 15 (7-17) mg/dL Creatinine 0.73 (0.52-1.04) mg/dL Estimated GFR 119.2 ML/MIN Glucose 64 L (74-106) mg/dL Calcium 9.3 (8.4-10.2) mg/dL Total Bilirubin 0.40 (0.2-1.3) mg/dL AST 24 (14-36) U/L ALT 20 (0-35) U/L Alkaline Phosphatase 91 (38-126) U/L Serum Total Protein 8.2 (6.3-8.2) g/dL Albumin 4.6 (3.5-5.0) g/dL - Progress Progress: unchanged Medical Desision Making - Diagnostic Testing Diagnostic test were ordered, analyzed, and reviewed by me: Yes - Risk of complications Minimal Risk: Minimal risk of morbidity - Departure Departure Disposition: AMA Clinical Impression: Arthralgia Condition: Stable Critical Care Time: No Referrals: DANIELLE ONTIVEROS MD [Primary Care Provider] - Follow up/PCP as directed
== END 2023-06-22 16:40 | disposition left against medical advice (07) ==
LOC: ED 15:28
DX: M25.59 Pain in other specified joint (principal); Z28.310 Unvaccinated for COVID-19
CPT/HCPCS: 36415; 80053; 85025; 85652; 86140; 99282

== ENCOUNTER 2023-12-14 04:55 | Emergency (ER) | payer OTHER ==
[2023-12-14 05:12] VITALS: RESP 16; TEMP 97.5
--- NOTE | 2023-12-14 05:28 | ERPHSYRPT ---
- History of Present Illness Time Seen by Provider: 12/14/23 05:22 Historian: patient Exam Limitations: no limitations Patient Subjective Stated Complaint: pt states that she woke with pain in her left side of her back Triage Nursing Assessment: pt ambulated with normal gait carrying a baby carrier; pt is axo x4; c/o left back pain; pt states 5/10 pain to left posterior back; no bruising or deformity present to back; good ROM to torso; skin PDW; no respiratory distress present; clear lung sounds in all lobes; vitals wnl Physician History: 23-year-old female presents to our ED with acute onset left flank pain that o ccurred just prior to arrival. Pain described as an ache that originates at the left posterior flank and radiates down towards the left groin. No trauma no fever no nausea vomiting or diaphoresis. Pain is constant. No significant worsening or improving factors. Patient denies a history of kidney stones. No obvious hematuria. Patient reports he is otherwise healthy. She voices no other complaints or concerns at this time. Portions of this note were created with voice recognition technology. There may be grammatical, spelling, punctuation or sound alike errors Timing/Duration: today Activities at Onset: none Quality: aching Abdominal Pain Onset Location: flank (Left flank) Pain Radiation: groin Severity of Pain-Max: moderate Severity of Pain-Current: mild Modifying Factors: Improves With: nothing Associated Symptoms: denies symptoms Previous symptoms: no prior history Allergies/Adverse Reactions: trazodone Allergy (Severe, Verified 12/14/23 05:02) Difficulty Breathing aripiprazole [From Abilify] Adverse Reaction (Intermediate, Verified 12/14/23 05:02) muscle spasm ibuprofen Adverse Reaction (Mild, Verified 12/14/23 05:02) dizzy Home Medications: No Reportable Medications [No Reported Medications] 06/22/23 [History] Hx Tetanus, Diphtheria Vaccination/Date Given: Yes Hx Influenza Vaccination/Date Given: No Hx Pneumococcal Vaccination/Date Given: No Travel Risk - International Travel Have you traveled outside of the country in past 3 weeks: No - Emerging Infectious Disease Are you exhibiting symptoms associated with any current EIDs: No - Review of Systems Constitutional: No Symptoms, No Fever, No Chills Eyes: No Symptoms Ears, Nose, & Throat: No Symptoms Respiratory: No Symptoms, No Cough, No Dyspnea Cardiac: No Symptoms, No Chest Pain, No Edema, No Syncope Abdominal/Gastrointestinal: No Symptoms, No Abdominal Pain, No Nausea, No Vomiting, No Diarrhea Genitourinary Symptoms: No Symptoms, No Dysuria Musculoskeletal: No Symptoms, No Back Pain, No Neck Pain Skin: No Symptoms, No Rash Neurological: No Symptoms, No Dizziness, No Focal Weakness, No Sensory Changes Psychological: No Symptoms Endocrine: No Symptoms Hematologic/Lymphatic: No Symptoms Immunological/Allergic: No Symptoms All Other Systems: Reviewed and Negative - Past Medical History Pertinent Past Medical History: Yes Neurological History: No Pertinent History ENT History: No Pertinent History Cardiac History: Arrhythmia Respiratory History: Asthma Endocrine Medical History: No Pertinent History Musculoskeletal History: No Pertinent History GI Medical History: Other History: No Pertinent History Psycho-Social History: Anxiety, Attention Deficit Disorder, Depression Female Reproductive Disorders: No Pertinent History Other Medical History: Concerta possibly caused arrhythmia 2020, Constipation with dairy. Acid reflux with - Past Surgical History Past Surgical History: Yes Neuro Surgical History: No Pertinent History Cardiac: No Pertinent History Respiratory: No Pertinent History Gastrointestinal: No Pertinent History Genitourinary: No Pertinent History Musculoskeletal: No Pertinent History Female Surgical History: Section Other Surgical History: [place] Teeth removal 2018 - Female History Hx Last Menstrual Period: last month Hx Now: No - Social History Smoking Status: Never smoker Exposure to second hand smoke: No Alcohol Use: Socially Drug Use: none Patient Lives Alone: No - Social Determinants of Health Will the patient participate in the screening: Yes Do you worry about a steady place to live?: No Do you have any problems with any of the following?: No known problems In the past 12 months,have you had to go without utilities?: No Transportation Issues: No Has anyone in your support network made you feel unsafe?: No Have you or anyone in your house had to go without enough: No - Nursing Vital Signs Nursing Vital Signs: Initial Vital Signs Pulse Rate 70 12/14/23 05:02 Blood Pressure 112/75 12/14/23 05:02 O2 Sat by Pulse Oximetry 98 12/14/23 05:02 Pain Scale Pain Intensity [Left Posterior 5 Back] Pain Intensity 2 - Physical Exam General Appearance: no apparent distress, alert Eye Exam: PERRL/EOMI, eyes nml inspection Ears, Nose, Throat Exam: normal ENT inspection, pharynx normal, moist mucous membranes Neck Exam: normal inspection, non-tender, supple, full range of motion Respiratory Exam: normal breath sounds, lungs clear, airway intact, No respiratory distress Cardiovascular Exam: regular rate/rhythm, normal heart sounds Gastrointestinal/Abdomen Exam: soft, tenderness (Left CVA tenderness.), No mass Back Exam: normal inspection, normal range of motion, No CVA tenderness, No vertebral tenderness Extremity Exam: normal inspection, normal range of motion, pelvis stable Neurologic Exam: alert, oriented x 3, cooperative, normal mood/affect, nml cerebellar function, sensation nml, No motor deficits Skin Exam: normal color, warm, dry Lymphatic Exam: No adenopathy SpO2 Interpretation: normal SpO2: 98 O2 Delivery: Room Air - Course Nursing assessment & vital signs reviewed: Yes - CT Exams Abdomen/Pelvis CT Interpretation: Tele-radiologist Report (No acute findings) Ordered Tests: Active Orders 24 hr Category Date Time Status IV Insertion STAT Care 12/14/23 05:19 Active ABDOMEN AND PELVIS W/0 CONTRAS [CT] Stat Exams 12/14/23 05:21 Completed CBC W DIFF Stat Lab 12/14/23 05:37 Completed CMP Stat Lab 12/14/23 05:37 Completed HCG QUALITATIVE, URINE Stat Lab 12/14/23 05:37 Completed UA W/RFX UR CULTURE Stat Lab 12/14/23 05:37 Completed Medication Summary Discontinued Medications Generic Name Dose Route Start Last Admin Trade Name Freq PRN Reason Stop Dose Admin Sodium Chloride 1,000 mls @ 999 mls/hr 12/14/23 05:19 12/14/23 06:47 Sodium Chloride 0.9% 1000 Ml IV 12/14/23 06:19 Infused .Q1H1M STA Infusion Sodium Chloride Confirm 12/14/23 05:34 Sodium Chloride 0.9% 1000 Ml Administered 12/14/23 05:35 Dose 1,000 mls @ ud .ROUTE .STK-MED ONE Ketorolac Tromethamine 30 mg 12/14/23 05:19 12/14/23 05:36 Ketorolac Tromethamine 30 Mg/Ml Inj IV 12/14/23 05:20 30 mg STAT ONE Administration Ketorolac Tromethamine Confirm 12/14/23 05:34 Ketorolac Tromethamine 30 Mg/Ml Inj Administered 12/14/23 05:35 Dose 30 mg .ROUTE .STK-MED ONE Lab/Rad Data: Laboratory Result Diagrams 12/14/23 05:37 12/14/23 05:37 Laboratory Results 12/14/23 12/14/23 12/14/23 Range/Units 05:37 05:37 05:37 WBC (3.98-10.04) x10^3/uL RBC (3.93-5.22) x10^6/uL Hgb (11.2-15.7) g/dL Hct (34.1-44.9) % MCV (79.4-94.8) fL MCH (25.6-32.2) pg MCHC (32.2-35.5) g/dL RDW (11.7-14.4) % Plt Count (182-369) x10^3/uL MPV (9.4-12.3) fL Gran % (34.0-71.1) % Immature Gran % (Auto) (0.001-0.429) % Nucleat RBC Rel Count (0.00-0.2) % Eos # (Auto) (0.04-0.36) x10^3/uL Immature Gran # (Auto) (0.001-0.031) x10^3u/L Absolute Lymphs (auto) (1.18-3.74) x10^3/uL Absolute Monos (auto) (0.24-0.86) x10^3/uL Absolute Nucleated RBC (0.00-0.012) x10^3u/L Lymphocytes % (19.3-51.7) % Monocytes % (4.7-12.5) % Eosinophils % (0.7-5.8) % Basophils % (0.1-1.2) % Absolute Granulocytes (1.56-6.13) x10^3/uL Basophils # (0.01-0.08) x10^3/uL Sodium 143 (135-145) mmol/L Potassium 3.8 (3.5-5.1) mmol/L Chloride 107 (98-107) mmol/L Carbon Dioxide 27 (22-30) mmol/L Anion Gap 13.2 (5-15) MEQ/L BUN 16 (7-17) mg/dL Creatinine 0.73 (0.52-1.04) mg/dL Estimated GFR 118.4 ML/MIN Glucose 101 (74-106) mg/dL Calcium 9.6 (8.4-10.2) mg/dL Total Bilirubin 0.40 (0.2-1.3) mg/dL AST 22 (14-36) U/L ALT 14 (0-35) U/L Alkaline Phosphatase 91 (38-126) U/L Serum Total Protein 8.1 (6.3-8.2) g/dL Albumin 4.7 (3.5-5.0) g/dL Urine Color Yellow (Yellow) Urine Appearance Clear (Clear) Urine pH 5.5 (4.6-8.0) Ur Specific [place] >=1.030 A (1.005-1.030) Urine Protein Negative (Negative) Urine Glucose (UA) Negative (Negative) mg/dL Urine Ketones Trace A (Negative) Urine Blood Negative (Negative) Urine Nitrite Negative (Negative) Urine Bilirubin Negative (Negative) Urine Urobilinogen 1.0 A (0.2) mg/dL Ur Leukocyte Esterase Negative (Negative) U Hyaline Cast (Auto) NONE SEEN (0-2) /LPF Urine Microscopic RBC 0-2 (0-5) /HPF Urine Microscopic WBC 0-2 (0-5) /HPF Ur Epithelial Cells Rare (None Seen) /HPF Urine Bacteria None Seen (None Seen) /HPF Urine Culture Reflexed NO (NO) Urine HCG, Qual NEGATIVE (NEGATIVE) 12/14/23 Range/Units 05:37 WBC 7.3 (3.98-10.04) x10^3/uL RBC 4.68 (3.93-5.22) x10^6/uL Hgb 12.9 (11.2-15.7) g/dL Hct 39.6 (34.1-44.9) % MCV 84.6 (79.4-94.8) fL MCH 27.6 (25.6-32.2) pg MCHC 32.6 (32.2-35.5) g/dL RDW 13.6 (11.7-14.4) % Plt Count 346 (182-369) x10^3/uL MPV 9.6 (9.4-12.3) fL Gran % 52.1 (34.0-71.1) % Immature Gran % (Auto) 0.3 (0.001-0.429) % Nucleat RBC Rel Count 0.0 (0.00-0.2) % Eos # (Auto) 0.22 (0.04-0.36) x10^3/uL Immature Gran # (Auto) 0.02 (0.001-0.031) x10^3u/L Absolute Lymphs (auto) 2.49 (1.18-3.74) x10^3/uL Absolute Monos (auto) 0.69 (0.24-0.86) x10^3/uL Absolute Nucleated RBC 0.00 (0.00-0.012) x10^3u/L Lymphocytes % 34.3 (19.3-51.7) % Monocytes % 9.5 (4.7-12.5) % Eosinophils % 3.0 (0.7-5.8) % Basophils % 0.8 (0.1-1.2) % Absolute Granulocytes 3.79 (1.56-6.13) x10^3/uL Basophils # 0.06 (0.01-0.08) x10^3/uL Sodium (135-145) mmol/L Potassium (3.5-5.1) mmol/L Chloride (98-107) mmol/L Carbon Dioxide (22-30) mmol/L Anion Gap (5-15) MEQ/L BUN (7-17) mg/dL Creatinine (0.52-1.04) mg/dL Estimated GFR ML/MIN Glucose (74-106) mg/dL Calcium (8.4-10.2) mg/dL Total Bilirubin (0.2-1.3) mg/dL AST (14-36) U/L ALT (0-35) U/L Alkaline Phosphatase (38-126) U/L Serum Total Protein (6.3-8.2) g/dL Albumin (3.5-5.0) g/dL Urine Color (Yellow) Urine Appearance (Clear) Urine pH (4.6-8.0) Ur Specific [place] (1.005-1.030) Urine Protein (Negative) Urine Glucose (UA) (Negative) mg/dL Urine Ketones (Negative) Urine Blood (Negative) Urine Nitrite (Negative) Urine Bilirubin (Negative) Urine Urobilinogen (0.2) mg/dL Ur Leukocyte Esterase (Negative) U Hyaline Cast (Auto) (0-2) /LPF Urine Microscopic RBC (0-5) /HPF Urine Microscopic WBC (0-5) /HPF Ur Epithelial Cells (None Seen) /HPF Urine Bacteria (None Seen) /HPF Urine Culture Reflexed (NO) Urine HCG, Qual (NEGATIVE) - Progress Progress: improved Progress Note: 23-year-old female presents to our ED for evaluation of left flank pain. Workup essentially nonremarkable. Urinalysis negative. Laboratory workup nonremarkable. CT abdomen pelvis unremarkable. Patient pain-free. No indication for further workup will discharge home. Patient agrees to follow-up with her primary care doctor within 48 hours for evaluation. Specific gravity and BUN to creatinine ratio suggest dehydration. Portions of this note were created with voice recognition technology. There may be grammatical, spelling, punctuation or sound alike errors Complexity problem addressed is moderate acute complicated. No critical care time. Complexity of data reviewed and analyzed is moderate. Test ordered test reviewed results analyzed and correlated clinically with history and physical exam. Risk of complication and or risk of morbidity/mortality patient management is low. Vital stable. Time spent to discharge patient approximately 20 minutes. Plan of care established for shared decision making. No social determinants of health present impede follow-up. Portions of this note were created with voice recognition technology. There may be grammatical, spelling, punctuation or sound alike errors 12/14/23 07:04 Counseled pt/family regarding: lab results, diagnosis, need for follow-up, rad results - Departure Departure Disposition: Home Clinical Impression: Flank pain, Dehydration Condition: Stable Critical Care Time: No Referrals: DANIELLE ONTIVEROS MD [Primary Care Provider] - Follow up/PCP as directed Additional Instructions: Discharge/Care Plan RADHA FERGUSON was seen on 12/14/23 in the Emergency Room. The patient was counseled regarding Diagnosis,Lab results, Imaging studies, need for follow up and when to return to the Emergency Room. Prescriptions given: Discharge Note I have spoken with the patient and/or caregivers. I have explained the patient's condition, diagnosis and treatment plan based on the information available to me at this time. I have answered the patient's and/or caregiver's questions and addressed any concerns. The patient and/or caregivers have as good understanding of the patient's diagnosis, condition and treatment plan as can be expected at this point. The vital signs have been stable. The patient's condition is stable and appropriate for discharge from the emergency department. The patient will pursue further outpatient evaluation with the primary care physician or other designated or consulting physician as outlined in the discharge instructions. The patient and/or caregivers are agreeable to this plan of care and follow-up instructions have been explained in detail. The patient and/or caregivers have received these instruction. The patient/and or caregivers are aware that any significant change in condition or worsening of symptoms should prompt an immediate return to this or the closest emergency department or call 911.
[2023-12-14] MEDS ORDERED: Sodium Chloride 0.9% 1000 ML 1,000 ML ONE (05:34)
[2023-12-14] MEDS ORDERED: TORAdol 30 mg Injection ONE (05:34)
[2023-12-14] MEDS: TORAdol 30 mg Injection IV ONE (05:36)
[2023-12-14] MEDS: Sodium Chloride 0.9% 1000 ML 1,000 ML IV STA (05:36)
[2023-12-14 05:39] LABS: Absolute Neutrophil Ct (ANC) 3.79 x10^3/uL (1.56-6.13); BASOPHIL % 0.8 % (0.1-1.2); Basophil (Absolute #) 0.06 x10^3/uL (0.01-0.08); Eosinophil (Absolute #) 0.22 x10^3/uL (0.04-0.36); Hematocrit 39.6 % (34.1-44.9); Hemoglobin 12.9 g/dL (11.2-15.7); IMMATURE GRAN # 0.02 x10^3u/L (0.001-0.031); IMMATURE GRAN % 0.3 % (0.001-0.429); Lymphocyte (Absolute #) 2.49 x10^3/uL (1.18-3.74); Lymphocytes % 34.3 % (19.3-51.7); Mean Cell Volume 84.6 fL (79.4-94.8); Mean Corpuscular Hemoglobin 27.6 pg (25.6-32.2); Mean Corpuscular Hgb Concent. 32.6 g/dL (32.2-35.5); Mean Platelet Volume 9.6 fL (9.4-12.3); Monocyte (Absolute #) 0.69 x10^3/uL (0.24-0.86); Monocytes % 9.5 % (4.7-12.5); Neutrophil % 52.1 % (34.0-71.1); Platelet Count 346 x10^3/uL (182-369); Red Blood Count 4.68 x10^6/uL (3.93-5.22); Red Cell Distribution Width 13.6 % (11.7-14.4); White Blood Count 7.3 x10^3/uL (3.98-10.04)
[2023-12-14 05:42] LABS: HCG URINE TEST NEGATIVE (NEGATIVE)
[2023-12-14 05:46] LABS: ADD URINE CULTURE? NO (NO); Appearance Clear (Clear); Bacteria None Seen /HPF (None Seen); Bilirubin Negative (Negative); Blood Negative (Negative); Epithelial Cells Rare /HPF (None Seen); Glucose, Urine Negative (Negative); Hyaline Casts NONE SEEN /LPF (0-2); Ketones Trace (Negative); Leukocyte Esterase Negative (Negative); Nitrite Negative (Negative); Ph 5.5 (4.6-8.0); Protein,Urine Dip Negative (Negative); RBC 0-2 /HPF (0-5); Specific Gravity >=1.030 (1.005-1.030); WBC 0-2 /HPF (0-5)
[2023-12-14 05:51] LABS: ALBUMIN 4.7 g/dL (3.5-5.0); ANION GAP 13.2 MEQ/L (5-15); BILIRUBIN,TOTAL 0.4 mg/dL (0.2-1.3); Calcium 9.6 mg/dL (8.4-10.2); Creatinine 1 0.73 mg/dL (0.52-1.04); EST GLOMERULAR FILTRATION RATE 118.4 ML/MIN; Potassium 3.8 mmol/L (3.5-5.1); Total Protein 8.1 g/dL (6.3-8.2)
--- NOTE | 2023-12-14 06:59 | XRAY ---
CLINICAL HISTORY: pain COMPARISON: None. TECHNIQUE: CT of the abdomen and pelvis was performed with axial images as well as sagittal and coronal reconstruction images without intravenous contrast. DLP : 184.92 mGy*cm, CTDI : 3.54 mGy. One of the following dose reduction techniques was utilized for this exam. Automated exposure control, adjustment of the mA and/or kV according to patient size, and use of iterative reconstruction. FINDINGS: Scanned lung bases are unremarkable. The liver is normal in size, morphology and appears unremarkable with no intrahepatic or extrahepatic bile duct dilation. The gall bladder is partially distended. No wall thickening or pericholecystic inflammatory changes or fluid. Unremarkable non-enhanced CT appearance of the spleen, adrenal glands and pancreas. The kidneys appear unremarkable with no calculi, cysts masses or hydronephrosis. The small and large bowel loops are of average caliber with no evidence of obstruction. A normal appendix is noted. No suspiciously enlarged mesenteric or retroperitoneal lymph nodes. The urinary is only partially filled, no calculi noted. No gross uterine or adnexal lesions. Possible trace of free fluid in the pelvis. The osseous structures in the pelvis, lower rib cage and lumbar spine show no abnormality. No lytic or sclerotic bone lesions. IMPRESSION: 1. No acute abnormality was detected. 2. Possible trace of free fluid in the pelvis. 3. If clinically indicated then further evaluation with contrast study is advised. Electronically Signed by: David Plascencia MD. (12/14/2023 06:55:54 EDT)
[2023-12-14 07:09] VITALS: O2SAT 98
[2023-12-14 07:15] VITALS: BP 107/65; PULSE 76
== END 2023-12-14 07:21 | disposition home or self-care (01) ==
LOC: ED 04:55
DX: R10.9 Unspecified abdominal pain (principal); E86.0 Dehydration
CPT/HCPCS: 36000; 36415; 74176; 80053; 81001; 81025; 85025; 96360; 96374; 99284; J1885